=== PATIENT | female | born 1940 | race Caucasian/White ===

== ENCOUNTER 2021-08-06 13:36 | Inpatient (IN) ==
[2021-08-06] MEDS ORDERED: Ondansetron ODT 4 MG TAB.RAPDIS SL PRN (17:28)
[2021-08-06] MEDS ORDERED: Sennosides/Docusate Sodium TABLET PO PRN (17:28)
[2021-08-06] MEDS ORDERED: Psyllium 1 PACKET POWD.PACK PO PRN (17:28)
[2021-08-06] MEDS: *HR* LORazepam 1 MG TABLET PO SCH (19:56)
[2021-08-06] MEDS: *HR* OxyCODONE/APAP 5/325 TABLET PO PRN (19:56)
[2021-08-06] MEDS: Ipratropium/Albuterol Neb 3 ML IH SCH (20:26)
[2021-08-06] MEDS: Budesonide/Formoterol 160/4.5 1 PUFF INH IH SCH (20:26)
[2021-08-07] MEDS: Ipratropium/Albuterol Neb 3 ML IH SCH ×4 (03:18→19:28)
[2021-08-07] MEDS: *HR* OxyCODONE/APAP 5/325 TABLET PO PRN ×3 (04:27→23:05)
[2021-08-07] MEDS: *HR* Enoxaparin 40 MG/0.4 ML SYRINGE SQ SCH (05:14)
[2021-08-07 05:22] LABS: Basophils % 0.4 %; Eosinophils # 0.2 K/mcL (0.0-0.6); Eosinophils % 2.4 %; Hematocrit 32.3 % (35.3-44.9); Hemoglobin 10.1 g/dL (11.5-15.4); Immature Granulocytes % 0.4 % (0-4); Lymphocytes % 10.6 %; Mean Corpuscular HGB Conc 31.3 g/dL (31.6-35.5); Mean Corpuscular Hemoglobin 27.8 pg (28.0-33.3); Mean Platelet Volume 10.1 fL (9.4-12.4); Monocytes # 0.9 K/mcL (0.0-1.3); Monocytes % 9.7 %; Neutrophils # 6.9 K/mcL (1.6-8.9); Platelet Count 269 K/mcL (140-400); Red Blood Count 3.63 M/mcL (3.82-4.97); Red Cell Distribution Width 13.7 % (11.5-14.5); Segmented Neutrophils % 76.5 %; White Blood Count 9.1 K/mcL (4.3-11.1)
[2021-08-07 05:33] LABS: BUN/Creatinine Ratio 18 (6-26); Blood Urea Nitrogen 16 mg/dL (8-23); Calcium 8.7 mg/dL (8.6-10.3); Carbon Dioxide 34 mEq/L (23-29); Chloride 96 mEq/L (98-107); Glucose 123 mg/dL (70-105); Osmolality,Calculated 287 (280-300); Potassium 3.3 mEq/L (3.5-5.1); Sodium 137 mEq/L (136-145); eGFR For African Americans > 60 (> 60); eGFR For Non-African Americans > 60 (> 60)
[2021-08-07] MEDS: Aspirin 325 MG TABLET PO SCH (08:23)
[2021-08-07] MEDS: Furosemide 40 MG TABLET PO SCH (08:24)
[2021-08-07] MEDS: carvediloL 25 MG TABLET PO SCH ×2 (08:24→16:47)
[2021-08-07] MEDS: *HR* LORazepam 1 MG TABLET PO SCH ×3 (08:24→23:05)
[2021-08-07] MEDS: DilTIAZem CD (24hr) 240 MG CAP.ER.24H PO SCH (08:24)
[2021-08-07] MEDS: Cholecalciferol (D-3) 1,000 UNIT (25MCG) TABLET PO SCH (08:24)
[2021-08-07] MEDS ORDERED: levoFLOXacin 750 MG TABLET PO SCH (09:00)
[2021-08-07] MEDS: Budesonide/Formoterol 160/4.5 1 PUFF INH IH SCH ×2 (09:43→19:28)
[2021-08-07] MEDS ORDERED: Simethicone 80 MG TAB.CHEW PO PRN (11:13)
[2021-08-08] MEDS: Ipratropium/Albuterol Neb 3 ML IH SCH ×2 (03:39→10:48)
[2021-08-08] MEDS: *HR* Enoxaparin 40 MG/0.4 ML SYRINGE SQ SCH (06:55)
[2021-08-08 07:28] VITALS: BP 149/67; PULSE 85; RESP 16; TEMP 97.9; O2SAT 95
[2021-08-08] MEDS: Aspirin 325 MG TABLET PO SCH (10:19)
[2021-08-08] MEDS: *HR* LORazepam 1 MG TABLET PO SCH ×2 (10:19→14:57)
[2021-08-08] MEDS: Cholecalciferol (D-3) 1,000 UNIT (25MCG) TABLET PO SCH (10:19)
[2021-08-08] MEDS: Furosemide 40 MG TABLET PO SCH (10:19)
[2021-08-08] MEDS: DilTIAZem CD (24hr) 240 MG CAP.ER.24H PO SCH (10:23)
[2021-08-08] MEDS: carvediloL 25 MG TABLET PO SCH (10:23)
[2021-08-08] MEDS: *HR* OxyCODONE/APAP 5/325 TABLET PO PRN (10:37)
[2021-08-08] MEDS: Budesonide/Formoterol 160/4.5 1 PUFF INH IH SCH (10:50)
== END 2021-08-08 16:17 | disposition home or self-care (01) | DRG 945 ==
LOC: INPGRE 17:57
PROVIDERS: ADMIT Family Medicine; ATTEND Family Medicine